=== PATIENT | male | born 1980 | race Two or more races ===

== ENCOUNTER 2021-12-03 06:16 | Emergency (ER) | payer MEDICAID ==
[~2021-12-03] VITALS: Ht 182.9 cm; Wt 74.8 kg
[2021-12-03 06:43] VITALS: BP 118/79
--- NOTE | 2021-12-03 06:45 | NUR ---
PRESENTED TO THE ER FOR C/O SI, PLANNING TO JUMP IN TO TRAFFIC. PATIENT A, OX4, AMBULATORY WITH STEADY GAITS TO THE BATHROOM. URINE SAMPLE OBTAINED . PATIENT DENIED ANY PAIN OR DISCOMFORT. VSS, COVID SWAB COLLECTED AND SENT TO LAB. VSS. SI PRECAUTION IMPLEMENTED. WILL CONT TO MONITOR
--- NOTE | 2021-12-03 06:51 | NUR ---
URINE COLLECTED AND SENT TO LAB
--- NOTE | 2021-12-03 06:51 | NUR ---
COVID SWAB COLLECTED AND SENT TO LAB
[2021-12-03 07:21] LABS: BASOPHILS % (AUTO) 0.9 % (0.0-2.0); EOSINOPHILS % (AUTO) 2.6 % (0.0-6.0); HEMATOCRIT 40 % (39-51); HEMOGLOBIN 13.4 g/dL (13.5-17.5); LYMPHOCYTES # (AUTO) 2.3 K/uL (0.8-4.8); LYMPHOCYTES % (AUTO) 43.6 % (20.0-44.0); MEAN CORPUSCULAR HGB CONC 34 g/dl (31.0-36.0); MEAN CORPUSCULAR VOLUME 92 fL (80-96); MONOCYTES # (AUTO) 0.5 K/uL (0.1-1.30); MONOCYTES % (AUTO) 9.4 % (2.0-12.0); NEUTROPHILS # (AUTO) 2.3 K/uL (1.8-8.9); NEUTROPHILS % (AUTO) 43.5 % (43.0-81.0); PLATELET COUNT (AUTO) 362 K/uL (150-450); RED BLOOD CELL COUNT(AUTO) 4.35 MIL/uL (4.5-6.0); WHITE BLOOD COUNT (AUTO) 5.2 K/uL (4.3-11.0)
[2021-12-03 07:35] LABS: CALCIUM, SERUM 8.3 mg/dL (8.5-10.1); CARBON DIOXIDE 24 mmol/L (21-32); CHLORIDE 107 mmol/L (98-107); CREATININE 0.9 mg/dL (0.6-1.3); GLUCOSE 102 mg/dL (74-106); POTASSIUM 4.1 mmol/L (3.5-5.1); SODIUM SERUM 141 mmol/L (136-145); UREA NITROGEN, BLOOD 10 mg/dL (7-18)
[2021-12-03 07:40] LABS: BILIRUBIN,URINE SMALL (NEGATIVE); LEUKOCYTE ESTERASE ,URINE NEGATIVE (NEGATIVE); NITRITE, URINE NEGATIVE (NEGATIVE); PH,URINE 5.5 (5.0-8.0); PROTEIN,URINE NEGATIVE (NEGATIVE); UGLUCOSE NEGATIVE (NEGATIVE); UROBILINOGEN,URINE 0.2 EU/dL (0.2)
[2021-12-03 07:48] LABS: COLOR,URINE DARK YELLOW (YELLOW)
[2021-12-03 07:48] LABS: ALANINE AMINOTRANSFERASE 30 U/L (12-78); ALBUMIN 3.4 g/dL (3.4-5.0); ALCOHOL, BLOOD < 3 mg/dL (0-0); ALKALINE PHOSPHATASE 88 U/L (46-116); ASPARTATE AMINOTRANSFERASE 20 U/L (15-37); BILIRUBIN,DIRECT 0.1 mg/dL (0.0-0.2); BILIRUBIN,TOTAL 0.2 mg/dL (0.2-1.0); TOTAL PROTEIN, SERUM 6.6 g/dL (6.4-8.2)
[2021-12-03 08:01] LABS: ACETAMINOPHEN < 10 ug/ml (10-30)
[2021-12-03 08:23] LABS: RBC,URINE NONE SEEN /HPF (0-2); WBC,URINE 0-2 /HPF (0-3)
[2021-12-03 08:24] LABS: BACTERIA,URINE None seen /HPF (None Seen); MUCUS,URINE Moderate /LPF (None Seen); SQUAMOUS EPITHELIAL CELL,UR None Seen /HPF (None Seen)
--- NOTE | 2021-12-03 09:43 | NUR ---
FAXED CLINICALS TO [facility] [FAX: [phone]].
--- NOTE | 2021-12-03 12:07 | NUR ---
Pt. accepeted under Dr. Butt. Call in for report [[phone]]. Jono from [facility] will call back for ETA.
--- NOTE | 2021-12-03 12:23 | NUR ---
report given to Tiarra for lenore,sts, she will send the transport to pick him up
--- NOTE | 2021-12-03 14:00 | NUR ---
TRANSPORT FROM [facility] CAME AND PICKED UP THE PATIENT
== END 2021-12-03 14:10 ==
LOC: ER 06:20
DX: R45.851 Suicidal ideations (principal); Z59.00 Homelessness unspecified; F20.9 Schizophrenia, unspecified; F31.9 Bipolar disorder, unspecified; F12.90 Cannabis use, unspecified, uncomplicated; Z20.822 Contact with and (suspected) exposure to COVID-19
CPT/HCPCS: 36415; 80048; 80076; 80143; 80307; 80320; 81001; 85025; 87426; 99285; C9803; G0480

== ENCOUNTER 2021-12-10 23:34 | Emergency (ER) | payer MEDICAID ==
[~2021-12-10] VITALS: Ht 175.3 cm; Wt 78.5 kg
--- NOTE | 2021-12-10 23:54 | NUR ---
DACIA C/O SI WITH PLAN TO JUMP IN FRONT OF A CAR. -HI. REQUESTING [facility]
[2021-12-11 00:04] LABS: BASOPHILS % (AUTO) 0.3 % (0.0-2.0); EOSINOPHILS % (AUTO) 0.1 % (0.0-6.0); HEMATOCRIT 40 % (39-51); HEMOGLOBIN 13.4 g/dL (13.5-17.5); LYMPHOCYTES # (AUTO) 1.2 K/uL (0.8-4.8); LYMPHOCYTES % (AUTO) 14.5 % (20.0-44.0); MEAN CORPUSCULAR HGB CONC 33 g/dl (31.0-36.0); MEAN CORPUSCULAR VOLUME 92 fL (80-96); MONOCYTES # (AUTO) 0.3 K/uL (0.1-1.30); MONOCYTES % (AUTO) 3.3 % (2.0-12.0); NEUTROPHILS # (AUTO) 6.8 K/uL (1.8-8.9); NEUTROPHILS % (AUTO) 81.8 % (43.0-81.0); PLATELET COUNT (AUTO) 294 K/uL (150-450); RED BLOOD CELL COUNT(AUTO) 4.36 MIL/uL (4.5-6.0); WHITE BLOOD COUNT (AUTO) 8.3 K/uL (4.3-11.0)
[2021-12-11 00:16] LABS: BILIRUBIN,URINE NEGATIVE (NEGATIVE); COLOR,URINE YELLOW (YELLOW); LEUKOCYTE ESTERASE ,URINE NEGATIVE (NEGATIVE); NITRITE, URINE NEGATIVE (NEGATIVE); PH,URINE 5.5 (5.0-8.0); PROTEIN,URINE NEGATIVE (NEGATIVE); UGLUCOSE NEGATIVE (NEGATIVE); UROBILINOGEN,URINE 0.2 EU/dL (0.2)
[2021-12-11 00:16] LABS: CALCIUM, SERUM 8.6 mg/dL (8.5-10.1); CARBON DIOXIDE 23 mmol/L (21-32); CHLORIDE 108 mmol/L (98-107); CREATININE 0.8 mg/dL (0.6-1.3); GLUCOSE 114 mg/dL (74-106); POTASSIUM 3.7 mmol/L (3.5-5.1); SODIUM SERUM 140 mmol/L (136-145); UREA NITROGEN, BLOOD 10 mg/dL (7-18)
[2021-12-11 00:23] LABS: ACETAMINOPHEN 0 ug/ml (10-30); ALANINE AMINOTRANSFERASE 22 U/L (12-78); ALBUMIN 3.7 g/dL (3.4-5.0); ALCOHOL, BLOOD < 3 mg/dL (0-0); ALKALINE PHOSPHATASE 79 U/L (46-116); ASPARTATE AMINOTRANSFERASE 13 U/L (15-37); BILIRUBIN,DIRECT 0.1 mg/dL (0.0-0.2); BILIRUBIN,TOTAL 0.1 mg/dL (0.2-1.0); TOTAL PROTEIN, SERUM 6.9 g/dL (6.4-8.2)
--- NOTE | 2021-12-11 08:30 | NUR ---
FAXED CLINICALS TO [facility] INTAKE.
--- NOTE | 2021-12-11 09:58 | NUR ---
SS consult: SS Consult requested for SI, drug absue & homelessness. The pt. is a 41 year old male. The pt. was covering his face with the covers. Pt. was awake and he was moving. SW introduced self and asked pt. to bring covers out of his face to conduct face to afce interview. Pt. did not comply. SW attempted to interview pt. and asked many different questions and pt. refused to participate in interview. SW offered mental health, addiction and homeless resources and pt. refused. Pt. also refused to sign homeless waiver. Resources and waiver were placed in the chart. SW will remain available as needed. resources offered include: Year-round shelters: [facility] [address] [place], [place] [id number] ; [facility] [address] [place] [address]; [facility] Dypsskt7188 [facility]. [facility] [address] Hygiene: [facility]: [address] [facility] ; [facility] [address] [facility] ; [facility] 1755 [facility] . Food Resources: [place] [facility] at [facility]- 5700 [facility]; Meet Each Need with Dignity ([facility]) [address] [facility]; [facility] 5282 [facility]; [facility] 5113 [facility]. Mental Health resources provided: [facility] [address] [place] [address] ; [facility] [address] [facility] [address], [place] [address] ; [facility] [address] [place] [address] ; [facility] [place] [address] Healthcare Clinics: [facility] [address] [facility], [address] [place]. [place] ; [facility] [address] [facility] [address] [place] [address]; [facility] [address] [facility] [phone]) [phone] Counseling--Outpatient [facility] [address] [facility], [place] [address] (Specializes in in-depth psychotherapy for emotional distress: anxiety, depression, interpersonal conflicts, life transitions, childhood abuse) [facility] [address] [place] [address] (Assist with solving problem marital difficulties, separation & divorce, aging parents, & grief, chronic & terminal illness) [facility] [address] [place] [address] (Deal with loss & grief, anxiety, marital difficulties) Homebound/Mental Health Services [address] [facility], [address] [place] [address] (Provide in-home mental services to people who are incapable of leaving their homes) [facility] for Needs of the Elderly Senior Service/Resource Center [address] [facility] [place] [address] [facility] [address] [facility] [place] [address] PSYCHIATRIC OUTPATIENT SERVICES [facility] Partial Hospitalization and Intensive Outpatient Program (Managed Care and Van Only)[address] [facility]. [facility] [phone] [facility] Partial Hospitalization and Outpatient Oegakht40345 [facility] [address] [place], [place] [phone] [facility] Mental Health Center Khw19604 [facility] [address] [place], [place] [phone] [facility] Partial Hospitalization and Outpatient Cmeymui94316 [place], [phone] Substance Abuse resources provided included: [facility] Substance Abuse Self-Helpline ([facility]) ; [facility] [address] [facility]. [place] [id number] ; [facility] [address] [facility] [address] ; [facility] [address] [place]. [place] [id number] ; [facility] [address] [facility] [phone] ; [facility] [address] [facility] [address] ; [facility] 902 [facility] [phone] ; [facility] Substance Abuse Helpline([facility])-[facility] ; [facility] ; [facility] [place]; [facility] [place]; [facility] [place]; [facility] [place]; [place]; [facility] [place]; [facility] [place]; Alcoholics Anonymous -SFV; Ah-Zage-Qvmbgfd ; Marijuana Anonymous -[facility]V; Narcotics Anonymous www.na.org;
--- NOTE | 2021-12-11 11:07 | NUR ---
received a call from Rachele from [facility] and per Rachele sachinhusam was just discharged not even 24 hrs ago and will not accept the patient. Informed addiction social worker Delia to [facility] and aware.
--- NOTE | 2021-12-11 11:17 | NUR ---
MARIANN faxed clinicals to [facility] TEL:[phone] fax:[phone] for placement at [facility] or [facility] treatment.
--- NOTE | 2021-12-11 14:11 | NUR ---
CALLED [facility]TA[facility] AWAITING FEEDBACK PER BHUMIKA.
--- NOTE | 2021-12-11 19:05 | NUR ---
PT ACCEPTED TO [facility] UNDER DR. MON CALL [phone] FOR REPORT PLEASE CALL AFTER 1940 PER ART.
--- NOTE | 2021-12-11 19:10 | NUR ---
[facility] CALLED FOR TRANSPORT WITH ETA OF 2030
[2021-12-11 19:32] VITALS: BP 131/78
--- NOTE | 2021-12-11 20:37 | NUR ---
REPORT GIVEN TO CRYSTAL MAY
--- NOTE | 2021-12-11 20:52 | NUR ---
TRANSFERRED TO [facility] IN STABLE CONDITION
== END 2021-12-11 20:54 ==
LOC: ER 23:37
DX: R45.851 Suicidal ideations (principal); F19.10 Other psychoactive substance abuse, uncomplicated; Z59.00 Homelessness unspecified; Z20.822 Contact with and (suspected) exposure to COVID-19
CPT/HCPCS: 36415; 80048; 80076; 80143; 80307; 80320; 81003; 85025; 87426; 99285; C9803; G0480

== ENCOUNTER 2022-01-06 08:44 | Emergency (ER) | payer MEDICAID ==
[~2022-01-06] VITALS: Ht 182.9 cm; Wt 86.2 kg
--- NOTE | 2022-01-06 08:44 | NUR ---
BIBS STATING THAT HE HAS SI AND PLANS TO RUN INTO TRAFFIC, DENIES HI. PT WANDED BY SECURITY AND BELONGINGS TAKEN AND SECURED, CHANGED INTO HOSPITAL GOWN. 1:1 SITTER AT BEDSIDE.
--- NOTE | 2022-01-06 08:56 | NUR ---
PT HAS BEEN STRIPPED OF HIS BELONGINGS. AND PT HAS BEEN WANDED
--- NOTE | 2022-01-06 08:57 | NUR ---
COVID SWAB HAS BEEN RECIEVED AND SENT TO LAB
[2022-01-06 09:36] LABS: BASOPHILS % (AUTO) 0.4 % (0.0-2.0); EOSINOPHILS % (AUTO) 0.6 % (0.0-6.0); HEMATOCRIT 40 % (39-51); HEMOGLOBIN 13.1 g/dL (13.5-17.5); LYMPHOCYTES # (AUTO) 2.4 K/uL (0.8-4.8); LYMPHOCYTES % (AUTO) 23.1 % (20.0-44.0); MEAN CORPUSCULAR HGB CONC 33 g/dl (31.0-36.0); MEAN CORPUSCULAR VOLUME 92 fL (80-96); MONOCYTES # (AUTO) 0.8 K/uL (0.1-1.30); MONOCYTES % (AUTO) 7.4 % (2.0-12.0); NEUTROPHILS # (AUTO) 7.1 K/uL (1.8-8.9); NEUTROPHILS % (AUTO) 68.5 % (43.0-81.0); PLATELET COUNT (AUTO) 367 K/uL (150-450); RED BLOOD CELL COUNT(AUTO) 4.32 MIL/uL (4.5-6.0); WHITE BLOOD COUNT (AUTO) 10.4 K/uL (4.3-11.0)
--- NOTE | 2022-01-06 09:44 | NUR ---
Note ripangelina in ED - 01/06/22 at 1008 by DERREK BIBS STATING THAT HE HAS SI AND PLANS TO RUN INTO TRAFFIC, DENIES HI. PT WANDED BY SECURITY AND BELONGINGS TAKEN AND SECURED, CHANGED INTO HOSPITAL GOWN. 1:1 SITTER AT BEDSIDE.
[2022-01-06 09:53] LABS: BILIRUBIN,URINE NEGATIVE (NEGATIVE); COLOR,URINE YELLOW (YELLOW); LEUKOCYTE ESTERASE ,URINE NEGATIVE (NEGATIVE); NITRITE, URINE NEGATIVE (NEGATIVE); PROTEIN,URINE NEGATIVE (NEGATIVE); UGLUCOSE NEGATIVE (NEGATIVE)
[2022-01-06] MEDS ORDERED: LORAZEPAM 1 MG TABLET ONE ×2 (09:58→20:10)
[2022-01-06 10:00] LABS: CALCIUM, SERUM 8.3 mg/dL (8.5-10.1); CARBON DIOXIDE 25 mmol/L (21-32); CHLORIDE 98 mmol/L (98-107); CREATININE 1.1 mg/dL (0.6-1.3); GLUCOSE 102 mg/dL (74-106); POTASSIUM 3.3 mmol/L (3.5-5.1); SODIUM SERUM 136 mmol/L (136-145); UREA NITROGEN, BLOOD 16 mg/dL (7-18)
[2022-01-06] MEDS ORDERED: LORAZEPAM 1 MG TABLET PO ONE ×2 (10:00→20:30)
[2022-01-06 10:06] LABS: ALANINE AMINOTRANSFERASE 65 U/L (12-78); ALBUMIN 4.3 g/dL (3.4-5.0); ALCOHOL, BLOOD < 3 mg/dL (0-0); ALKALINE PHOSPHATASE 88 U/L (46-116); ASPARTATE AMINOTRANSFERASE 52 U/L (15-37); BILIRUBIN,DIRECT 0.2 mg/dL (0.0-0.2); BILIRUBIN,TOTAL 0.6 mg/dL (0.2-1.0)
[2022-01-06 10:07] LABS: ACETAMINOPHEN < 10 ug/ml (10-30)
[2022-01-06 10:16] LABS: RBC,URINE 0-2 /HPF (0-2)
[2022-01-06 10:17] LABS: BACTERIA,URINE Rare /HPF (None Seen); SQUAMOUS EPITHELIAL CELL,UR None Seen /HPF (None Seen); WBC,URINE NONE SEEN /HPF (0-3)
--- NOTE | 2022-01-06 12:56 | NUR ---
MARIANN faxed clinicals to [facility] [[facility] [place] [address] FAX:] [facility] TEL:[phone] fax:[phone] for voluntary psychiatric treatment.
--- NOTE | 2022-01-06 14:48 | NUR ---
FOLLED UP WITH [facility]. THEY RECEIVED ALL THE PAPERWORK WILL CALL WITH ACCEPTANCE.
--- NOTE | 2022-01-06 18:25 | NUR ---
CALLED [facility] AND WAS NOTIFIED THAT THEY HAVE REVIEVED PT CLINICALS. WAS NOTIFIED THAT WE WILL RECIEVE A CALL WHEN PT HAS BEEN ACCEPTED
--- NOTE | 2022-01-06 20:10 | NUR ---
PT AMBULATED TO BATHROOM, STEADY GAIT NOTED
[2022-01-06 20:11] VITALS: BP 149/101
--- NOTE | 2022-01-06 22:48 | NUR ---
PER ART AT [facility] INTAKE PT IS ACCEPTED AT [facility] BY DR PERAZA # FOR REPORT: [phone]
--- NOTE | 2022-01-06 22:51 | NUR ---
[facility] ETA: BY MIDNIGHT
--- NOTE | 2022-01-06 22:58 | NUR ---
BASSAM GIVEN TO KEILY NELSON
--- NOTE | 2022-01-07 00:02 | NUR ---
[facility]tyraferred to [facility] instable condition
== END 2022-01-07 00:46 ==
LOC: ER 08:48
DX: R45.851 Suicidal ideations (principal); F19.10 Other psychoactive substance abuse, uncomplicated; F15.10 Other stimulant abuse, uncomplicated; F12.10 Cannabis abuse, uncomplicated; Z20.822 Contact with and (suspected) exposure to COVID-19; Z59.00 Homelessness unspecified
CPT/HCPCS: 36415; 80048; 80076; 80143; 80307; 80320; 81001; 85025; 87426; 99285; C9803; G0480

== ENCOUNTER 2022-02-28 11:01 | Emergency (ER) | payer MEDICAID ==
[~2022-02-28] VITALS: Ht 182.9 cm; Wt 72.6 kg
--- NOTE | 2022-02-28 11:30 | NUR ---
BIBS WITH SI PLAN TO RUN INTO TRAFFIC, DENIES HI/HALLUCINATIONS ADMITS TO METH USE. PLACED ON ROOM-18, AWAKE-ALERT RESTLESS IN NATURE. CALLED SECURITY FOR WANDED.
--- NOTE | 2022-02-28 11:52 | NUR ---
SWAB FOR COVID19 SENT. PATIENT UNABLE TO PROVIDE URINE SAMPLE AT THIS TIME WILL FOLLOW UP.
[2022-02-28 12:13] LABS: BASOPHILS # (AUTO) 0.1 K/uL (0.0-0.2); BASOPHILS % (AUTO) 0.5 % (0.0-2.0); EOSINOPHILS % (AUTO) 0.6 % (0.0-6.0); HEMATOCRIT 44 % (39-51); HEMOGLOBIN 14.9 g/dL (13.5-17.5); LYMPHOCYTES # (AUTO) 2.1 K/uL (0.8-4.8); LYMPHOCYTES % (AUTO) 18.7 % (20.0-44.0); MEAN CORPUSCULAR HGB CONC 34 g/dl (31.0-36.0); MEAN CORPUSCULAR VOLUME 90 fL (80-96); MONOCYTES # (AUTO) 1.1 K/uL (0.1-1.30); NEUTROPHILS # (AUTO) 7.7 K/uL (1.8-8.9); NEUTROPHILS % (AUTO) 70.2 % (43.0-81.0); PLATELET COUNT (AUTO) 380 K/uL (150-450); RED BLOOD CELL COUNT(AUTO) 4.87 MIL/uL (4.5-6.0)
[2022-02-28] MEDS ORDERED: OLANZAPINE 10 MG VIAL IM ONE ×2 (12:30→12:31)
[2022-02-28 12:34] LABS: ALANINE AMINOTRANSFERASE 41 U/L (12-78); ALBUMIN 4.8 g/dL (3.4-5.0); ALKALINE PHOSPHATASE 81 U/L (46-116); ASPARTATE AMINOTRANSFERASE 42 U/L (15-37); BILIRUBIN,DIRECT 0.5 mg/dL (0.0-0.2); BILIRUBIN,TOTAL 2.9 mg/dL (0.2-1.0); CALCIUM, SERUM 9.7 mg/dL (8.5-10.1); CARBON DIOXIDE 21 mmol/L (21-32); CHLORIDE 103 mmol/L (98-107); CREATININE 1.8 mg/dL (0.6-1.3); GLUCOSE 86 mg/dL (74-106); POTASSIUM 3.2 mmol/L (3.5-5.1); SODIUM SERUM 140 mmol/L (136-145); TOTAL PROTEIN, SERUM 8.5 g/dL (6.4-8.2); UREA NITROGEN, BLOOD 22 mg/dL (7-18)
[2022-02-28 12:41] LABS: ACETAMINOPHEN < 10 ug/ml (10-30); ALCOHOL, BLOOD < 3 mg/dL (0-0)
--- NOTE | 2022-02-28 12:45 | NUR ---
REPEAT SAMPLE SWAB FOR COVID19 TAKEN AND SENT TO LAB. PATIENT STILL UNABLE TO GIVE URINE SAMPLE- WILL FOLLOW UP.
--- NOTE | 2022-02-28 13:39 | NUR ---
FAXED CLINICALS TO [facility]
--- NOTE | 2022-02-28 13:51 | NUR ---
URINE SAMPLE SENT TO LAB
[2022-02-28 15:13] LABS: BILIRUBIN,URINE MODERATE (NEGATIVE); COLOR,URINE YELLOW (YELLOW); LEUKOCYTE ESTERASE ,URINE NEGATIVE (NEGATIVE); NITRITE, URINE NEGATIVE (NEGATIVE); PH,URINE 5.5 (5.0-8.0); PROTEIN,URINE 100 mg/dl (NEGATIVE); UGLUCOSE NEGATIVE (NEGATIVE)
[2022-02-28 15:43] LABS: BACTERIA,URINE RARE /HPF (None Seen); MUCUS,URINE Many /LPF (None Seen); RBC,URINE 0-2 /HPF (0-2); URINE AMORPHOUS URATE Few /HPF (None Seen); WBC,URINE 0-2 /HPF (0-3)
--- NOTE | 2022-02-28 15:46 | NUR ---
[facility] CALLED WITH PT ACCEPTANCE INFO UNDER THE CARE OF DR. EDEN NUMBER FOR REPORT [phone]. [phone] CALLING [facility] FOR TRANSPORT
--- NOTE | 2022-02-28 15:49 | NUR ---
CALLED [facility] FOR BLS TRANSPORT ETA [phone]
--- NOTE | 2022-02-28 17:20 | NUR ---
REPORT GIVEN TO SONIA FOR ROBERT
[2022-02-28 17:34] VITALS: BP 134/92
--- NOTE | 2022-02-28 17:34 | NUR ---
transported to [facility]. stable condition.
== END 2022-02-28 17:34 ==
LOC: ER 11:13
DX: R45.851 Suicidal ideations (principal); F15.10 Other stimulant abuse, uncomplicated; F23 Brief psychotic disorder; Z20.822 Contact with and (suspected) exposure to COVID-19; Z59.00 Homelessness unspecified
CPT/HCPCS: 99285; 96372; 85025; 80048; 82550; 80076; 81001; 36415; 82553; 87426; 80143; 80320; 80307; J3490; C9803; G0480

== ENCOUNTER 2022-03-22 19:13 | Emergency (ER) | payer MEDICAID ==
[~2022-03-22] VITALS: Ht 180.3 cm; Wt 70.3 kg
[2022-03-22] MEDS ORDERED: diphenhydrAMINE HCL 50 MG/ML VIAL ONE (20:21)
[2022-03-22] MEDS ORDERED: HALOPERIDOL LACTATE INJ 5 MG/ML VIAL ONE (20:21)
[2022-03-22] MEDS ORDERED: LORAZEPAM INJ 2 MG/ML VIAL ONE (20:21)
[2022-03-22] MEDS ORDERED: OLANZAPINE 10 MG VIAL IM ONE (20:30)
[2022-03-22] MEDS ORDERED: LORAZEPAM INJ 2 MG/ML VIAL IM ONE (20:30)
[2022-03-22] MEDS ORDERED: diphenhydrAMINE HCL 50 MG/ML VIAL IM ONE (20:30)
[2022-03-22] MEDS ORDERED: HALOPERIDOL LACTATE INJ 5 MG/ML VIAL IM ONE (20:30)
[2022-03-22 20:56] LABS: HEMATOCRIT 40 % (39-51); HEMOGLOBIN 13.5 g/dL (13.5-17.5); RED BLOOD CELL COUNT(AUTO) 4.45 MIL/uL (4.5-6.0); WHITE BLOOD COUNT (AUTO) 9.5 K/uL (4.3-11.0)
[2022-03-22 20:57] LABS: BASOPHILS % (AUTO) 0.5 % (0.0-2.0); EOSINOPHILS % (AUTO) 1.2 % (0.0-6.0); LYMPHOCYTES # (AUTO) 2.2 K/uL (0.8-4.8); LYMPHOCYTES % (AUTO) 23.6 % (20.0-44.0); MEAN CORPUSCULAR HGB CONC 34 g/dl (31.0-36.0); MEAN CORPUSCULAR VOLUME 90 fL (80-96); MONOCYTES # (AUTO) 0.9 K/uL (0.1-1.30); NEUTROPHILS # (AUTO) 6.1 K/uL (1.8-8.9); NEUTROPHILS % (AUTO) 64.7 % (43.0-81.0); PLATELET COUNT (AUTO) 339 K/uL (150-450)
[2022-03-22 21:08] LABS: BILIRUBIN,URINE NEGATIVE (NEGATIVE); COLOR,URINE YELLOW (YELLOW); LEUKOCYTE ESTERASE ,URINE NEGATIVE (NEGATIVE); NITRITE, URINE NEGATIVE (NEGATIVE); PH,URINE 6.5 (5.0-8.0); PROTEIN,URINE 30 mg/dl (NEGATIVE); UGLUCOSE NEGATIVE (NEGATIVE)
[2022-03-22 21:13] LABS: ALANINE AMINOTRANSFERASE 28 U/L (12-78); ALKALINE PHOSPHATASE 82 U/L (46-116); ASPARTATE AMINOTRANSFERASE 23 U/L (15-37); BILIRUBIN,DIRECT 0.2 mg/dL (0.0-0.2); BILIRUBIN,TOTAL 0.7 mg/dL (0.2-1.0); CALCIUM, SERUM 9.1 mg/dL (8.5-10.1); CARBON DIOXIDE 27 mmol/L (21-32); CHLORIDE 106 mmol/L (98-107); CREATININE 1.2 mg/dL (0.6-1.3); GLUCOSE 103 mg/dL (74-106); POTASSIUM 4.2 mmol/L (3.5-5.1); SODIUM SERUM 144 mmol/L (136-145); TOTAL PROTEIN, SERUM 7.3 g/dL (6.4-8.2); UREA NITROGEN, BLOOD 13 mg/dL (7-18)
[2022-03-22 21:18] LABS: ACETAMINOPHEN 0 ug/ml (10-30); ALCOHOL, BLOOD < 3 mg/dL (0-0)
[2022-03-22 21:31] LABS: BACTERIA,URINE 1+ /HPF (None Seen); RBC,URINE 0-2 /HPF (0-2); WBC,URINE 0-2 /HPF (0-3)
[2022-03-22 21:32] LABS: SPERM,URINE Moderate /HPF (None Seen)
[2022-03-23 12:28] VITALS: BP 125/80
== END 2022-03-23 12:50 ==
LOC: ER 19:15
DX: R45.851 Suicidal ideations (principal); F31.9 Bipolar disorder, unspecified; F20.9 Schizophrenia, unspecified; F15.10 Other stimulant abuse, uncomplicated; Z59.00 Homelessness unspecified; Z20.822 Contact with and (suspected) exposure to COVID-19
CPT/HCPCS: 99291; 96372 ×2; 85025; 80048; 80076; 81001; 36415; 87426; 80143; 80320; 80307; J2060; J1200; J1630; C9803; G0480

== ENCOUNTER 2022-06-01 11:03 | Emergency (ER) | payer MEDICAID ==
[~2022-06-01] VITALS: Ht 180.3 cm; Wt 90.7 kg
--- NOTE | 2022-06-01 11:12 | NUR ---
REYES LAPMiranda OFFICERS C/O FEELING SUICIDAL REQUESTING ADMISSION TO PSYCH FACILITY. PLACED ON BED, AWAKE-ALERT NOT RESPONDING TO QUESTIONS, CALM.
--- NOTE | 2022-06-01 11:30 | NUR ---
CERTIFIED TUMOR REGISTRAR AT BEDSIDE
--- NOTE | 2022-06-01 11:43 | NUR ---
COVID SWAB COLLECTED AND SENT TO LAB
[2022-06-01 11:55] LABS: BASOPHILS % (AUTO) 0.2 % (0.0-2.0); EOSINOPHILS % (AUTO) 0.1 % (0.0-6.0); HEMATOCRIT 41 % (39-51); HEMOGLOBIN 13.8 g/dL (13.5-17.5); LYMPHOCYTES # (AUTO) 0.7 K/uL (0.8-4.8); MEAN CORPUSCULAR HGB CONC 33 g/dl (31.0-36.0); MEAN CORPUSCULAR VOLUME 90 fL (80-96); MONOCYTES # (AUTO) 0.5 K/uL (0.1-1.30); MONOCYTES % (AUTO) 7.4 % (2.0-12.0); NEUTROPHILS % (AUTO) 82.3 % (43.0-81.0); PLATELET COUNT (AUTO) 380 K/uL (150-450); RED BLOOD CELL COUNT(AUTO) 4.58 MIL/uL (4.5-6.0); WHITE BLOOD COUNT (AUTO) 7.3 K/uL (4.3-11.0)
[2022-06-01 12:05] LABS: CALCIUM, SERUM 9.3 mg/dL (8.5-10.1); CARBON DIOXIDE 26 mmol/L (21-32); CHLORIDE 104 mmol/L (98-107); CREATININE 1.3 mg/dL (0.6-1.3); GLUCOSE 108 mg/dL (74-106); POTASSIUM 3.3 mmol/L (3.5-5.1); SODIUM SERUM 142 mmol/L (136-145); UREA NITROGEN, BLOOD 18 mg/dL (7-18)
[2022-06-01 12:10] LABS: ALANINE AMINOTRANSFERASE 37 U/L (12-78); ALBUMIN 4.3 g/dL (3.4-5.0); ALCOHOL, BLOOD < 3 mg/dL (0-0); ALKALINE PHOSPHATASE 73 U/L (46-116); ASPARTATE AMINOTRANSFERASE 42 U/L (15-37); BILIRUBIN,DIRECT 0.2 mg/dL (0.0-0.2); BILIRUBIN,TOTAL 0.5 mg/dL (0.2-1.0); TOTAL PROTEIN, SERUM 8.1 g/dL (6.4-8.2)
[2022-06-01 12:14] LABS: ACETAMINOPHEN 0 ug/ml (10-30)
[2022-06-01 19:30] VITALS: BP 134/75
[2022-06-01 20:48] LABS: BILIRUBIN,URINE NEGATIVE (NEGATIVE); COLOR,URINE YELLOW (YELLOW); LEUKOCYTE ESTERASE ,URINE NEGATIVE (NEGATIVE); NITRITE, URINE NEGATIVE (NEGATIVE); PROTEIN,URINE NEGATIVE (NEGATIVE); UGLUCOSE NEGATIVE (NEGATIVE); UROBILINOGEN,URINE 0.2 EU/dL (0.2)
--- NOTE | 2022-06-01 22:46 | NUR ---
FACESHEET AND CLINICALS FAXED TO [facility].
--- NOTE | 2022-06-02 01:56 | NUR ---
ACCEPTED AT [facility] UNDER DR PERAZA NUMBER FOR REPORT [phone]
--- NOTE | 2022-06-02 01:58 | NUR ---
[facility]BULANCE [id number] [id number]
--- NOTE | 2022-06-02 02:58 | NUR ---
REPORT GIVEN TO EMS AND LESLIE AT [facility] VN
== END 2022-06-02 03:07 ==
LOC: ER 11:04
DX: R45.851 Suicidal ideations (principal); F15.10 Other stimulant abuse, uncomplicated; Z59.01 Sheltered homelessness; Z20.822 Contact with and (suspected) exposure to COVID-19
CPT/HCPCS: 36415; 80048-TC; 80076-TC; 85025-TC; C9803; G0480